=== PATIENT | female | born 2000 | race Caucasian/White ===

== ENCOUNTER 2024-08-02 22:33 | Emergency (ER) | payer OTHER, SELFPAY ==
[2024-08-02 22:35] VITALS: BP 165/106
[2024-08-02] MEDS: MOTRIN 400 MG PO (22:49)
[2024-08-02 22:58] LABS: % Basophils 0.8 % (0-2); % Eosinophils 3.3 % (0-6); % Immature Granulocytes 0.4 % (0-0.5); % Lymphocytes 16.9 % (20.5-51.1); % Monocytes 9.4 % (1.7-9.3); % Neutrophils 69.2 % (42.2-75.2); Absolute Eosinophils 0.2 10^3/uL (0-0.7); Absolute Lymphocytes 0.8 10^3/uL (1.2-3.4); Absolute Monocytes 0.5 10^3/uL (0.1-0.6); Absolute Neutrophils 3.4 10^3/uL (1.4-6.5); Hematocrit 37.2 % (37.0-47.0); Hemoglobin 13.2 g/dL (12.0-16.0); Mean Corp Hgb Conc. 35.5 g/dL (33.0-37.0); Mean Corpuscular Hgb 29.2 pg (27.0-31.0); Mean Corpuscular Volume 82.3 fL (81.0-99.0); Mean Platelet Volume 9.2 fL (7.4-10.4); Nucleated Red Blood Cells % 0 %; Platelet Count 236 10^3/uL (130-400); Red Blood Cell Count 4.52 10^6/uL (4.20-5.40); Red Cell Dist. Width 12.3 % (11.5-14.5); White Blood Cell Count 4.9 10^3/uL (4.8-10.8)
[2024-08-02 23:06] LABS: Urine Albumin Negative (Neg - Trace); Urine Bilirubin Negative (Negative); Urine Character Clear (Clear); Urine Color Yellow; Urine Glucose Negative (Negative); Urine Ketone Negative (Negative); Urine Leukocyte Trace (Negative); Urine Nitrite Negative (Negative); Urine Occult Blood Negative (Negative); Urine Specific Gravity 1.015 (<1.030); Urine Urobilinogen Negative (Neg - 1+)
[2024-08-02 23:10] LABS: HCG, Serum Qualitative Screen Negative
[2024-08-02 23:13] LABS: ALT (SGPT) 17 U/L (0-35); AST (SGOT) 18 U/L (14-36); Albumin 4.6 g/dl (3.5-5.0); Alkaline Phosphatase 51 U/L (38-126); Blood Urea Nitrogen 13 mg/dl (7-17); Calcium 9.2 mg/dl (8.4-10.2); Carbon Dioxide 20 mmol/L (22-30); Chloride 105 mmol/L (98-107); Glucose 111 mg/dl (70-99); Lipase 51 U/L (23-300); Potassium 3.8 mmol/L (3.5-5.1); Sodium 137 mmol/L (135-145); Total Bilirubin 0.3 mg/dl (0.2-1.3); Total Protein 7.2 g/dl (6.3-8.2); Urine Bacteria Moderate (Negative); Urine Squamous Cell >30 /LPF (Few); eGFR > 60.00
[2024-08-02 23:14] LABS: Urine Red Blood Cell 0-2 /HPF (0-2)
[2024-08-02 23:20] LABS: COVID-19 Antigen Negative (Negative)
--- NOTE | 2024-08-02 23:22 | ED.GENMED ---
History of Present Illness
General
Chief Complaint: Abdominal Symptoms
Source: patient
Exam Limitations: none
Time Seen by Provider: 08/02/24 23:13
Nursing documentation reviewed up to this point in time: agreed with
History of Present Illness
History of Present Illness:
The patient is a 23-year-old female who reports that this afternoon she developed fevers, chills, body ache, and a burning sensation in her throat going all the way down and towards her chest and upper abdomen. Patient reports that is making it
feel like it is hard for her to breathe. Additionally, she reports nasal congestion. Patient took Tylenol prior to arrival. Patient was given Motrin prior to my evaluation in the ED. Patient denies a history of PE and DVT. She denies calf pain
and Swelling. She denies nausea vomiting and rash.
Past History
Past History
ED Past Medical History: GERD and Other (Eosinophyllic esophagitis)
ED Past Surgical History: Orthopedic
Social History
Tobacco: Non-smoker
Alcohol: None
Drug: None
Personal: Single
Living: with family
Employment: Other
Family History
Family History: Other
Review of Systems
Review of Systems
Allergies reviewed?: Yes
All Other Systems: ROS reviewed and negative except as documented in HPI and ROS
Constitutional: Reports fever and chills
EENT: Reports other (Throat pain)
Respiratory: Reports trouble breathing
Cardiac: Reports chest pain
ABD/GI: Reports abdominal pain
: Reports no symptoms
Musculoskeletal: Reports muscle pain
Skin: Reports no symptoms
Neurological: Reports no symptoms
Endocrine: Reports no symptoms
Hematologic/Lymphatic: Reports no symptoms
Psychiatric: Reports no symptoms
Phy Exam
Physical Exam
Physical Exam:
Physical Exam
General: Patient appears nontoxic but appears anxious
Neck: supple. no meningeal signs. normal posterior pharynx. No pharyngeal erythema or exudate.
Heart: Tachycardic, no murmur
Lungs: no acute respiratory distress. clear bilaterally. No wheezing or crackles
Abdomen: Soft, nontender
Neuro: alert and oriented. no focal neurological deficits
Skin: no rash
Psychiatric: well kept. interactive and cooperative
Extremities: no edema. no calf tenderness. negative homans. good distal pulses
Course
Orders/Labs/Results
Orders:
Orders
08/02/24 22:38
Electrocardiogram (*1) Urgent
Reason for Study: Chest Pain
EKG- Treatment ONCE
Test Result ONCE
08/02/24 22:47
Ibuprofen [Motrin] 400 mg .ROUTE .STK-MED ONE
08/02/24 22:48
Complete Blood Count/With Diff Urgent
Comprehensive Metabolic Panel Urgent
HCG, Serum Qualitative Screen Urgent
Lipase Urgent
Urinalysis Reflex To Culture Urgent
Date Specimen was Collected: 08/02/24
Time Specimen was Collected: 22:39
Urine Microscopic Reflex Cult Urgent
Urine Culture Urgent
BRANDT Source: U
Specimen Description:
Date Specimen was Collected: 08/02/24
Time Specimen was Collected: 22:39
08/02/24 22:49
Ibuprofen [Motrin] 400 mg PO NOW STA
08/02/24 22:50
COVID-19 Antigen Urgent
Source: Nasal Swab
Influenza A+B Rapid Molecular Urgent
BRANDT Source: Nasal Swab
Specimen Description:
08/02/24 23:23
Mag Hydrox/Al Hydrox/Simeth [Maalox] 30 ml Phenobarb/Hyoscy/Atropine/Scop [] 10 ml Viscous Lidocaine 2% [Xylocaine Viscous Cup] 10 ml PO NOW
08/02/24 23:[address] Non Medication Order As Directed
Physician Order: walking pulse ox
08/02/24 23:30
Mag Hydrox/Al Hydrox/Simeth [Maalox] 30 ml .ROUTE .STK-MED ONE
Phenobarb/Hyoscy/Atropine/Scop [] 10 ml .ROUTE .STK-MED ONE
08/02/24 23:31
Viscous Lidocaine 2% [Xylocaine Viscous Cup] 15 ml .ROUTE .STK-MED ONE
08/02/24 23:45
0.9% Sodium Chloride 1000 ml [Nss] 1,000 ml IV BOLUS
08/03/24 01:15
Oseltamivir Phosphate [Tamiflu] 75 mg PO NOW STA
Abnormal Lab Results
08/02/24
22:48
Absolute Lymphs (auto) 0.8 L 10^3/uL
(1.2-3.4)
Lymphocytes % 16.9 L %
(20.5-51.1)
Monocytes % 9.4 H %
(1.7-9.3)
Carbon Dioxide 20 L mmol/L
(22-30)
Glucose 111 H mg/dl
(70-99)
Leukocyte Esterase Rfl Trace A
(Negative)
Urine Bacteria (Reflex) Moderate A
(Negative)
08/02/24 22:48
08/02/24 22:48
Vital Signs
Initial and Last Documented VS:
Initial Vital Signs
Temp Pulse Resp BP Pulse Ox
100.4 F H 133 18 165/106 99
08/02/24 22:35 08/02/24 22:35 08/02/24 22:35 08/02/24 22:35 08/02/24 22:35
Last Documented Vital Signs
Temp Pulse Resp BP Pulse Ox
100.4 F H 133 18 165/106 99
08/02/24 22:35 08/02/24 22:35 08/02/24 22:35 08/02/24 22:35 08/02/24 22:35
MDM/Problems Addressed
Differential Diagnosis Includes:
Viral illness such as COVID, influenza, PE, pneumonia
MDM/Problems Addressed:
Patient presents with acute fever, chills, body aches, chest pain, abdominal pain and shortness of breath
Acute Exacerbation and/or Progression of Chronic Illness:
Patient has hypertensive, however, she is extremely anxious
Acute Exacerbation and/or Progression of Chronic Illness: HTN
*Pulse Oximetry
Patient hypoxic: no
*EKG
Interpreted by ED Provider?: Yes
Interpretation: abnormal
Comparison EKG: no comparison EKG present
Rate: tachycardiac
Rhythm: sinus
[place]: normal axis
Interval: normal interval
QRS Pattern: normal QRS
Ischemia: no ischemia
*Management Rep Interpretation
Rate: tachycardiac
Interpretation: normal
Rhythm: sinus
*Critical Care Note
Total Time (30-74mins, 75-104mins- exclusive of procedures): Not Applicable
Data Reviewed
Source: patient and family
Patient Management
Social determinants of health affecting care: Living situation and Strong social support
Update Note
Update Note:
1:00 AM patient's heart rate has improved and is now in the 90s. She feels much more comfortable. monitor tech shows no sign of cardiac dysrhythmias. Lungs are clear and there is no sign of pneumonia. Patient encouraged to rest and drink lots
of fluids to stay hydrated.
ED Attending Note
-
Portions of this chart may have been created with voice recognition software.� Occasional wrong word or��sound alike� substitutions may have occurred due to the inherent limitations of voice recognition software.
Discharge Plan
Departure
Patient Disposition: Home (Routine Discharge)
Date of Disposition: 08/03/24
Time of Disposition: 01:12
Patient with high blood pressure during this ER visit?: Yes
Condition: Good
Covid-19: Not Applicable
Discharge Problem:
Influenza
Instructions: Flu in adults - ED discharge instructions
Prescriptions:
New
oseltamivir [Tamiflu] 75 mg capsule
75 mg PO BID Qty: 9 0RF
No Action
levonorgestrel-ethinyl estrad [Aviane] 1 EACH tablet
1 tab PO DAILY
omeprazole 40 MG capsule,delayed release(DR/EC)
40 mg PO DAILY Qty: 30 0RF
Referrals:
[facility] [Other]
Dorcas Hall MD [Family Provider] -
Activity Restrictions/Additional Instructions:
Drink lots of fluids and rest. Take 1000 mg of Tylenol every 4-6 hours for fever. In addition to Tylenol, you can also take Motrin 600 mg every 8 hours as needed for fever.
Tamiflu may shorten the duration and intensity of your symptoms.
If you continue to get burning in your throat and chest, please take an antacid once a day,in the morning, before breakfast. They are sold [id number]. For example, you can take 15mg of Prevacid. It is good to take them for at least 1 week.
Interventions
Interventions:
*General Assessment Last Done: 08/02/24 22:35
ED- Fall Risk Assessment Last Done: 08/03/24 01:31
*ED COVID-19 Vaccine History Last Done: 08/02/24 22:35
[id number]-[id number] Assessment Last Done: 08/03/24 01:31
Discharge Date and Time
Print Language: ESTONIAN
[2024-08-02] MEDS: MAALOX 45 PO (23:34)
[2024-08-02] MEDS: NSS 1000 IV (23:50)
[2024-08-03] MEDS: TAMIFLU 75 MG PO (01:23)
== END 2024-08-03 01:34 | disposition home or self-care (01) ==
LOC: EMR 22:33
PROVIDERS: Emergency Medicine; EMERGENCY PHYSICIAN Emergency Medicine; FAMILY PHYSICIAN Internal Medicine
DX: J10.1 Influenza due to other identified influenza virus with other respiratory manifestations (principal); R50.9 Fever, unspecified; K21.9 Gastro-esophageal reflux disease without esophagitis; K20.0 Eosinophilic esophagitis
CPT/HCPCS: 99283; 80053; 81003; 81015; 83690; 84703; 85025; 87086; 87502; 87811; 93005